=== PATIENT | male | born 1955 | race Caucasian/White ===

== ENCOUNTER → 2017-12-11 | Outpatient (CLI) | payer OTHER ==
[~2017-12-11] MED LIST: CEPH500C PO; DXY100; TRIA0.5O
--- NOTE | 2017-12-11 09:38 | DIAGNOSTIC IMAGING REPORT ---
ABDOMEN COMPLETE (US) CLINICAL HISTORY: DYSPEPSIA COMPARISON STUDY: No previous studies for comparison. FINDINGS: The body and tail the pancreas were poorly visualized. No abnormalities the pancreatic head were evident. The liver was of increased echogenicity. There is a 6 mm left lobe cyst. There is focal fatty sparing adjacent the gallbladder fossa. There is no ductal dilatation. The common bile duct measures 5 mm. The spleen measured 10.4 cm in length. No splenic masses are visualized. No gallstones are evident. There is adenomyomatosis. There are bilateral renal cysts. There is a 4.5 cm right renal cyst, and 4.7 cm left renal cyst. IMPRESSION: 1. Increased hepatic echogenicity, nonspecific finding most often seen in hepatic steatosis 2. No ductal dilatation 3. No gallstones identified. Adenomyomatosis. 4. Bilateral renal cysts Electronically signed by: Efra Smith M.D. 12/11/2017 9:36 AM Dictated Date/Time: 12/11/2017 9:34 AM
== END | disposition home or self-care (01) ==
LOC: C.ULTRBC 08:53
PROVIDERS: ATTEND Internal Medicine Gastroenterology
DX: R10.13 Epigastric pain (principal); N28.1 Cyst of kidney, acquired